=== PATIENT | male | born 1990 | race African-American/Black ===

== ENCOUNTER → 2018-04-29 | Emergency (ER) | payer OTHER ==
[~2018-04-29] VITALS: Ht 170.2 cm; Wt 100.7 kg
== END | disposition home or self-care (01) ==
LOC: ER 20:29
DX: J11.1 Influenza due to unidentified influenza virus with other respiratory manifestations (principal)

== ENCOUNTER 2020-05-20 12:06 | Emergency (ER) | payer OTHER ==
[~2020-05-20] VITALS: Ht 167.6 cm; Wt 90.7 kg
== END 2020-05-20 19:57 | disposition home or self-care (01) ==
LOC: ER 12:06
DX: K76.0 Fatty (change of) liver, not elsewhere classified (principal); R10.32 Left lower quadrant pain

== ENCOUNTER → 2023-08-25 | Emergency (ER) | payer OTHER ==
[~2023-08-25] VITALS: Ht 175.3 cm; Wt 99.8 kg
[~2023-08-25] MED LIST: DICLOFENAC POTA50 MG PO; KETOROLAC TROMETHAMINE 30 MG VIAL IM STA
== END | disposition home or self-care (01) ==
LOC: ER 17:16
DX: S83.92XA Sprain of unspecified site of left knee, initial encounter (principal); X58.XXXA Exposure to other specified factors, initial encounter; Y93.89 Activity, other specified; Y92.89 Other specified places as the place of occurrence of the external cause; Y99.9 Unspecified external cause status; Z87.09 Personal history of other diseases of the respiratory system

== ENCOUNTER 2023-11-04 07:37 | Emergency (ER) | payer OTHER ==
[~2023-11-04] VITALS: Ht 167.6 cm; Wt 108.9 kg
[~2023-11-04 07:37] MED LIST changes: -KETOROLAC TROMETHAMINE 30 MG VIAL IM STA
[2023-11-04] MEDS ORDERED: FAMOtidine 10 MG/ML (4ML VIAL) IV STA (08:47)
[2023-11-04] MEDS ORDERED: METOCLOPRAMIDE HCL 5 MG/ML VIAL IV STA (08:48)
[2023-11-04] MEDS ORDERED: METOCLOPRAMIDE HCL 5 MG/ML VIAL ONE (08:59)
[2023-11-04] MEDS ORDERED: FAMOTIDINE/PF 20 MG/2 ML VIAL ONE (08:59)
[2023-11-04] MEDS ORDERED: HYOSCYAMINE SULFATE 0.125 MG TAB.SUBL ONE (08:59)
[2023-11-04] MEDS ORDERED: HYOSCYAMINE SULFATE 0.125 MG TAB.SUBL SL ONE (09:00)
== END 2023-11-04 10:01 | disposition home or self-care (01) ==
LOC: ER 07:38
DX: K29.70 Gastritis, unspecified, without bleeding (principal)

== ENCOUNTER 2023-11-30 07:18 | Emergency (ER) | payer OTHER ==
[~2023-11-30] VITALS: Ht 165.1 cm; Wt 89.8 kg
[2023-11-30] MEDS ORDERED: AMOXICILLIN500 M1 PO (09:13)
== END 2023-11-30 09:52 | disposition home or self-care (01) ==
LOC: ER 07:19
DX: N62 Hypertrophy of breast (principal)

== ENCOUNTER 2024-01-20 09:35 | Emergency (ER) | payer OTHER ==
[~2024-01-20] VITALS: Ht 167.6 cm; Wt 89.8 kg
[~2024-01-20 09:35] MED LIST changes: +AMOXICILLIN500 M1 PO
[2024-01-20 09:44] VITALS: BP 107/69; O2SAT 98
[2024-01-20] MEDS ORDERED: AMOX1TAB5 PO (10:08)
[2024-01-20] MEDS ORDERED: BACITRACIN1 EACH TOP (10:08)
== END 2024-01-20 10:20 | disposition home or self-care (01) ==
LOC: ER 09:36
DX: N61.0 Mastitis without abscess (principal)

== ENCOUNTER 2024-02-16 11:51 | Emergency (ER) | payer OTHER ==
[~2024-02-16] VITALS: Ht 167.6 cm; Wt 90.3 kg
[~2024-02-16 11:51] MED LIST changes: +AMOX1TAB5 PO; +BACITRACIN1 EACH TOP
[2024-02-16] MEDS ORDERED: KETO10TA2 PO (13:00)
[2024-02-16] MEDS ORDERED: MUPIROCIN15 GM TOP (13:00)
[2024-02-16] MEDS ORDERED: KETOROLAC TROMETHAMINE 60 MG VIAL IM ONE (13:15)
== END 2024-02-16 14:47 | disposition home or self-care (01) ==
LOC: ER 11:52
DX: N61.0 Mastitis without abscess (principal); D24.1 Benign neoplasm of right breast

== ENCOUNTER 2024-03-01 08:47 | Emergency (ER) | payer OTHER ==
[~2024-03-01] VITALS: Ht 167.6 cm; Wt 90.3 kg
[~2024-03-01 08:47] MED LIST changes: +KETO10TA2 PO; +MUPIROCIN15 GM TOP
[2024-03-01] MEDS ORDERED: IPRATROPIUM/ALBUTEROL SULFATE 3 ML AMPUL.NEB IH ONE (10:00)
[2024-03-01] MEDS ORDERED: ACETAMINOPHEN 500 MG GEL..CAP PO ONE (10:00)
[2024-03-01 10:35] LABS: HEMATOCRIT 43.3 % (39.0-48.0); HEMOGLOBIN 15.2 g/dL (13-16.00); MEAN CELL VOLUME 91.1 fL (80.0-100.00); MEAN CORPUSCULAR HGB CONC 35.2 g/dl (32.0-36.0); PLATELET COUNT 324 K/uL (150-450); RED BLOOD COUNT 4.75 M/uL (4.00-6.00); RED CELL DISTRIBUTION WIDTH 12.8 % (11.5-14.5)
[2024-03-01 11:07] LABS: CALCIUM 8.9 mg/dL (8.5-10.1); CREATININE SERUM 1.15 mg/dL (0.70-1.30); GFR 73.24; POTASSIUM 4.45 mEq/L (3.5-5.1)
[2024-03-01] MEDS ORDERED: BENZONATATE100 MG PO (11:31)
[2024-03-01] MEDS ORDERED: ALBUTEROL1.25 MG/3 IH (11:31)
[2024-03-01 12:06] VITALS: BP 100/60; O2SAT 100
== END 2024-03-01 12:07 | disposition home or self-care (01) ==
LOC: ER 08:49
PROVIDERS: General Practice
DX: J98.01 Acute bronchospasm (principal); B34.9 Viral infection, unspecified

== ENCOUNTER 2024-04-08 07:15 | Emergency (ER) | payer OTHER ==
[~2024-04-08] VITALS: Ht 167.6 cm; Wt 89.8 kg
[~2024-04-08 07:15] MED LIST changes: +ALBUTEROL1.25 MG/3 IH; +BENZONATATE100 MG PO
[2024-04-08] MEDS ORDERED: PEPCID AC20 MG PO (08:42)
[2024-04-08] MEDS ORDERED: MEDROLPACK PO (08:42)
[2024-04-08] MEDS ORDERED: KETOROLAC TROMETHAMINE 60 MG VIAL IM ONE (08:45)
[2024-04-08] MEDS ORDERED: CEFTRIAXONE SODIUM 1,000 MG VIAL IM ONE (08:45)
[2024-04-08] MEDS ORDERED: METHYLPREDNISOLONE SOD SUCC 40 MG VIAL IM SCH (09:00)
== END 2024-04-08 08:49 | disposition home or self-care (01) ==
LOC: ER 07:17
DX: N60.11 Diffuse cystic mastopathy of right breast (principal)

== ENCOUNTER 2024-06-17 07:07 | Emergency (ER) | payer OTHER ==
[~2024-06-17] VITALS: Ht 167.6 cm; Wt 59.0 kg
[~2024-06-17 07:07] MED LIST changes: +MEDROLPACK PO; +PEPCID AC20 MG PO
[2024-06-17] MEDS ORDERED: BUDESONIDE 0.5 MG/2 ML AMPUL.NEB IH STA (08:45)
[2024-06-17] MEDS ORDERED: LEVALBUTEROL HCL 1.25 MG/3 ML SOLUTION IH STA (08:46)
[2024-06-17] MEDS ORDERED: GUAIFENESIN/DEXTROMETHORPHAN 100MG/10ML BLIST.PACK PO STA (08:47)
[2024-06-17] MEDS ORDERED: GUAIFENESIN/DEXTROMETHORPHAN 100MG/10ML BLIST.PACK PO ONE (08:54)
[2024-06-17] MEDS ORDERED: LEVALBUTEROL HCL 0.63 MG/3 ML SOLUTION IH ONE (09:22)
[2024-06-17] MEDS ORDERED: BUDESONIDE 0.5 MG/2 ML AMPUL.NEB IH ONE (09:22)
[2024-06-17 10:06] LABS: ABG PH 7.375 (7.35-7.45); ABG pCO2 36.3 mmHg (35-45)
[2024-06-17 10:07] LABS: ABG PO2 89.1 mmHg (80-100); BASE EXCESS -3.8 mmol/l; BICARBONATE 20.8 mmol/l (23-25); SaO2 96.5 %; Tco2 21.9 mmol/l; allen test SATISFACTORY; o2 21 %; puncture site RADIAL RIGHT
[2024-06-17 10:39] LABS: HEMATOCRIT 43.9 % (39.0-48.0); HEMOGLOBIN 15.4 g/dL (13-16.00); MEAN CELL VOLUME 92.3 fL (80.0-100.00); MEAN CORPUSCULAR HEMOGLOBIN 32.4 pg (27.00-32.0); MEAN CORPUSCULAR HGB CONC 35.1 g/dl (32.0-36.0); PLATELET COUNT 306 K/uL (150-450); RED BLOOD COUNT 4.76 M/uL (4.00-6.00); RED CELL DISTRIBUTION WIDTH 12.9 % (11.5-14.5)
[2024-06-17] MEDS ORDERED: 0.9 % SODIUM CHLORIDE 1,000 ML IV STA (11:18)
[2024-06-17 11:55] LABS: CALCIUM 9.6 mg/dL (8.5-10.1); GFR 86.05; POTASSIUM 4.14 mEq/L (3.5-5.1)
[2024-06-17 13:30] LABS: HEMATOCRIT 43.2 % (39.0-48.0); HEMOGLOBIN 15.3 g/dL (13-16.00); MEAN CELL VOLUME 91.8 fL (80.0-100.00); MEAN CORPUSCULAR HEMOGLOBIN 32.5 pg (27.00-32.0); MEAN CORPUSCULAR HGB CONC 35.4 g/dl (32.0-36.0); PLATELET COUNT 293 K/uL (150-450); RED BLOOD COUNT 4.71 M/uL (4.00-6.00); RED CELL DISTRIBUTION WIDTH 12.9 % (11.5-14.5)
== END 2024-06-17 14:25 | disposition home or self-care (01) ==
LOC: ER 07:10
PROVIDERS: General Practice
DX: R53.83 Other fatigue (principal); B34.9 Viral infection, unspecified; Z20.822 Contact with and (suspected) exposure to COVID-19; J45.909 Unspecified asthma, uncomplicated